=== PATIENT | male | born 1945 | race Caucasian/White ===

== ENCOUNTER → 2023-04-13 08:15 | Outpatient (CLI) | payer MEDICARE, SELFPAY ==
--- NOTE | ~2023-04-13 | MR_ITS ---
EXAMINATION: MR thoracic spine wo con DATE: 04/13/2023 08:59 INDICATION: Mid to low back pain. Spinal stenosis, lumbar region without neurogenic claudication. TECHNIQUE: Magnetic resonance imaging (MRI) of the thoracic spine was performed without intravenous c ontrast. COMPARISON: None FINDINGS: There is 12 degrees dextroscoliosis of thoracic spine. There is 14 degrees levoscoliosis of cervicothoracic spine. There is mild chronic anterior wedging of T6-T12 vertebral bodies with Schmor l's nodes at these levels. There is mildly decreased disc height from T5-T6 through T9-T10 and modera tely decreased disc height at T11-T12 and T12-L1. 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 On the right, there is moderate neural foraminal stenosis at T9-T10 and T11-T12. On the left, there is moderate neural foraminal stenosis at T11-T12. At T5-T6, there is a central extrusion with mild central canal stenosis. At T6-T7, there is a central extrusion with mild central canal livan nosis and ventral indentation of the spinal cord. At T7-T8, there is a central extrusion with mild ce ntral canal stenosis. At T8-T9, there is a central extrusion with mild central canal stenosis and danna tral indentation of the spinal cord. At T9-T10, the disc is bulging with annular fissure and with mil d central canal stenosis. At T11-T12, disc is bulging with annular fissure and with mild central emery l stenosis. The spinal cord signal intensity is normal. The conus medullaris is at L1. There are cyst s in the kidneys measuring up to 2.0 cm on the right. IMPRESSION: 1. Moderate thoracic spondylosis. 2. Scoliosis. Reviewed, dictated and finalized at location L.
== END ==
PROVIDERS: PCP Internal Medicine; Visit Provider Anesthesiology Pain Medicine
DX: M48.062 Spinal stenosis, lumbar region with neurogenic claudication (principal); M43.04 Spondylolysis, thoracic region; M41.84 Other forms of scoliosis, thoracic region
CPT/HCPCS: 72146